=== PATIENT | male | born 1955 | race Caucasian/White ===

== ENCOUNTER 2017-10-18 17:13 | Observation (INO) | payer OTHER ==
[2017-10-18] MEDS ORDERED: Sodium Chloride 0.9% 10 ML Syringe FLUSH PRN (17:31)
[2017-10-18] MEDS ORDERED: Nitroglycerin 0.4 MG Tab.SL SL PRN (17:45)
[2017-10-18] MEDS ORDERED: Albuterol 0.083% 2.5 MG/3 ML Neb Soln NEB PRN (17:58)
[2017-10-18] MEDS ORDERED: Aspirin 325 MG Tab.EC PO SCH (20:00)
--- NOTE | 2017-10-18 22:41 | HP ---
CHIEF COMPLAINT: Chest pain. HISTORY OF PRESENT ILLNESS: This is a 61-year-old male with no known history of coronary artery disease but with hypertension, hyperlipidemia, and a family history of coronary disease, who presented to the clinic today after an acute onset of chest pain while he was out mowing the lawn for 15 minutes. The patient thought it was his heartburn. He went. He took some Pepto-Bismol. The pain went away. Then he returned to mowing. The pain came back. It lasted about 5 to 10 minutes. Then he went and rested even inside with air conditioning. Then he came back out, tried to work again. He was going to return. He had finished mowing, so he is going to do the fertilizer, but the pain got worse. He described it is midsternal and it was just like his chest was pounding. He told me he has not had this problem before, but the nurse and the provider had mentioned that maybe he had in the previous month. He tells me he is working very hard a couple days ago, digging some trenches, working for like many hours and did not have any chest discomfort or shortness of breath. He has been walking up and down hills on his property without limitation. When these symptoms happened, it sort of "took his breath away" but he did not have any more sweating than he usually would work outside. Symptoms started around 2 p.m. He had a meeting this morning, then lunch with half a beer, and then went home to [facility]. His last episode of chest pain finished around 3 p.m. He was in the clinic and had lab work drawn at 3:30 which showed his troponin to be negative. Otherwise, his history is significant for having hypertension, starting on medications in the last year, now blood pressures are under good control, but he did have a stress test last year with blood pressures going up to 234/38. It was stopped due to that and leg fatigue. He actually walked 7 minutes and 33 seconds, unfortunately had some ST changes at that time with depression horizontal at 3 minutes of exercise, heart rate a rate of 122, reaching 2 millimeters and resolved 5 minutes into recovery. I had made recommendations for him to have another stress test, possibly with imaging after his blood pressure got under better control, but he was doing well, so he did not have one. He has even been through cataract surgery. He recently, about a month ago, started on Crestor. PAST MEDICAL HISTORY: History of prostate cancer; essential hypertension; asthma, intermittent, he did not feel he has any cough or problems with that currently; mild hyperlipidemia; obesity; erectile dysfunction. FAMILY HISTORY: His dad had bypass surgery in his 60s or 70s, otherwise, he is alive. His mother is still alive. She has hypertension. SOCIAL HISTORY: He never smoked tobacco. He uses about 2 beers of alcohol per week. PAST SURGICAL HISTORY: Surgically, he has had a left inguinal hernia repair, right inguinal hernia, umbilical hernia, prostate surgery and cataract surgery. ALLERGIES: 1. Crestor, cough. 2. Lipitor muscle aches. 3. Pravastatin, water retention. MEDICATION: Medication list is reviewed. It does include hydrochlorothiazide 25 mg daily, Norvasc 10 mg daily, Crestor 10 mg daily, lisinopril 10 mg daily, aspirin 325, he takes 2 at bedtime, Zetia 10 mg daily, and albuterol as needed. REVIEW OF SYSTEMS: General: He said he has been working really hard. He has actually been about the same weight though. No fever, no chills. HEENT: No sore throat. Cardiac: As stated in the HPI. No irregular heart beats. Respiratory: As stated in the HPI. Abdominal: The Pepto-Bismol, it is not clear if that really helped it or not, but this was different than any heartburn he has had in the past. Musculoskeletal: He had no neck pain. No jaw pain. No shoulder pain. Otherwise, all systems reviewed and found to be negative unless otherwise stated. PHYSICAL EXAMINATION: Vital Signs: His weight was 224 pounds, blood pressure 108/70, respiratory rate 18, and O2 at 96% on room air, pulse 90. General: No acute distress. Heart: Regular rate and rhythm. S1, S2 without murmur. Lungs: Sounds are clear to auscultation bilaterally without crackles or wheezes. Abdomen: Positive bowel sounds. Soft and nontender. Extremities: Warm and dry. No edema. Skin: He is overall cardona, Mental Status: Alert and orientated x3. STUDIES: Chest x-ray reviewed. There was just some subtle scarring over the left base, otherwise normal EKG read as a normal sinus rhythm. Some nonspecific ST changes in lead III, but this was similar to his previous EKG. Lab work reviewed. Troponin was negative. White count, hemoglobin all normal. Glucose mildly elevated at 108, creatinine 1, otherwise electrolytes shahid. ASSESSMENT AND PLAN: Chest pain symptoms, very suspicious for stable angina. Discussed with the patient that this could lead to unstable angina and even a myocardial infarction. I recommended observation as he is just within a few hours of his episode. He was agreeable. We will repeat a troponin around [address] him on telemetry. We will repeat another troponin in the morning or sooner if needed. We will repeat an EKG for any chest pain. We will continue his aspirin, his statin, his home medications currently. Could consider adding a beta ismael, but we will hold off for now. If recurrence of chest pain, we will give him nitroglycerin. Instructed that on discharge if all things basket turner okay, he likely needs an angiogram. This can be arranged. Otherwise, we will add a D-dimer to his next blood work, although he has no risk factors for pulmonary embolism. He should have a normal D-dimer at this point. If not, we will do a CT PE protocol. We will update his primary care provider. He is a code level 1 due to suspecting less than 24 hours for admission. No DVT prophylaxis was started. The patient and his are aware of the plan. CARMENA: 10/18/2017 17:45:51 MODL: 10/18/2017 22:31:32 /[id number]
[2017-10-19] MEDS ORDERED: Hydrochlorothiazide 25 MG Tab PO SCH (08:00)
[2017-10-19] MEDS ORDERED: Lisinopril 10 MG Tab PO SCH (08:00)
[2017-10-19] MEDS ORDERED: amLODIPine 10 MG Tab PO SCH (08:00)
--- NOTE | 2017-10-19 08:25 | PCM.PN ---
- General Info Date of Service: 10/19/17 Subjective Update: See d/c summary instead. Note started in error. - Patient Data Vitals - Most Recent: Last Vital Signs Temp 36.8 C 10/19/17 06:00 Pulse 59 L 10/19/17 06:00 Resp 19 10/19/17 06:00 BP 110/66 10/19/17 06:00 Pulse Ox 98 10/19/17 06:00 Weight - Most Recent: 101.605 kg I&O - Last 24 Hours: Intake & Output 10/18/17 10/19/17 10/19/17 22:59 06:59 14:59 Intake Total 420 1200 Output Total 300 Balance 120 1200 Lab Results Last 24 Hours: Laboratory Results - last 24 hr 10/18/17 10/18/17 10/19/17 Range/Units 19:20 19:20 07:02 D-Dimer, Quantitative 0.26 (<=0.58) mg/LFEU Troponin I < 0.017 < 0.017 (<=0.056) ng/mL Med Orders - Current: Current Medications Albuterol (Proventil Neb Soln) 2.5 mg NEB Q4HRRT PRN PRN Reason: Shortness of Breath Amlodipine Besylate (Norvasc) 10 mg PO DAILY [facility] Aspirin (Ecotrin) 650 mg PO BEDTIME [facility] Last Admin: 10/18/17 20:22 Dose: 650 mg Hydrochlorothiazide (Hydrochlorothiazide) 25 mg PO DAILY [facility] Lisinopril (Prinivil) 10 mg PO DAILY [facility] Nitroglycerin (Nitrostat) 0.4 mg SL Q5M PRN PRN Reason: Chest Pain Nf (Rosuvastatin 10 (Mg)) 10 mg PO Q2D [facility] Sodium Chloride (Saline Flush) 10 ml FLUSH ASDIRECTED PRN PRN Reason: Keep Vein Open - Problem List Review Problem List Initiated/Reviewed/Updated: Yes
--- NOTE | 2017-10-19 08:41 | PCM.DCSUM1 ---
Discharge Summary - Hospital Course HPI Initial Comments: Mr. Verde is a 61 yo male who was admitted for observation after presenting with exertional chest pain yesterday. Diagnosis: Stroke: No - Discharge Data Discharge Date: 10/19/17 Discharge Disposition: DC/Tfer to Acute Hospital 02 Condition: Good - Discharge Diagnosis/Problem(s) (1) Angina pectoris SNOMED Code(s): 460868853 ICD Code: I20.9 - ANGINA PECTORIS, UNSPECIFIED Status: Acute Current Visit: Yes Problem Details: Symptoms of chest pain started while mowing the lawn and resolved with rest. This then recurred on 2 more occasions. EKG unchanged from previous. Troponins have been monitored and negative. He has not had any symptoms overnight but has not exerted himself. Did call and speak with cardiology this morning and they recommend an angiogram today in light of his previous positive stress test, family history, and risk factors. The patient is in agreement with this and will be transferred to [facility] via EMS for further evaluation and management there. (2) Hypertension SNOMED Code(s): 26737553 ICD Code: I10 - ESSENTIAL (PRIMARY) HYPERTENSION Status: Chronic Current Visit: Yes Problem Details: Blood pressure has been acceptable during his admission. Qualifiers: Hypertension type: essential hypertension Qualified Code(s): I10 - Essential (primary) hypertension (3) Hyperlipidemia SNOMED Code(s): 96265100 ICD Code: E78.5 - HYPERLIPIDEMIA, UNSPECIFIED Status: Chronic Current Visit: Yes Problem Details: He is on crestor without any issues. Qualifiers: Hyperlipidemia type: unspecified Qualified Code(s): E78.5 - Hyperlipidemia , unspecified - Patient Summary/Data Operative Procedure(s) Performed: none Complications: none Consults: none Labs Pending at D/C: none Planned Operative Procedure(s) after DC: angiogram Hospital Course: See details above. Patients labs remained normal and he was asymptomatic overnight. Spoke with cardiology who requests patient be transferred to [place] for angiogram today. Patient will be kept NPO until after this. EMS to transport patient. - Patient Instructions Diet: NPO - Discharge Plan Home Medications: Home Meds Albuterol [Proventil HFA] 1 - 2 puff INH Q4H PRN 10/18/17 [History] Aspirin 650 mg PO BEDTIME 10/18/17 [History] Ezetimibe [Zetia] 10 mg PO DAILY 10/18/17 [History] Hydrochlorothiazide 25 mg PO DAILY 10/18/17 [History] Lisinopril 10 mg PO DAILY 10/18/17 [History] Rosuvastatin [Crestor] 10 mg PO ASDIRECTED 10/18/17 [History] amLODIPine Besylate [Norvasc] 10 mg PO DAILY 10/18/17 [History] Forms: Interfacility Transfer EMTALA - Discharge Summary/Plan Comment DC Time >30 min.: No - General Info Date of Service: 10/19/17 Subjective Update: Patient asymptomatic overnight. No chest pain or shortness of breath. Feeling well this morning. Has not done much exertion. - Review of Systems General: Reports: No Symptoms HEENT: Reports: No Symptoms Pulmonary: Reports: No Symptoms Cardiovascular: Reports: No Symptoms Gastrointestinal: Reports: No Symptoms Genitourinary: Reports: No Symptoms Musculoskeletal: Reports: No Symptoms Skin: Reports: No Symptoms - Patient Data Vitals - Most Recent: Last Vital Signs Temp 36.8 C 10/19/17 06:00 Pulse 59 L 10/19/17 06:00 Resp 19 10/19/17 06:00 BP 110/66 10/19/17 06:00 Pulse Ox 98 10/19/17 06:00 Weight - Most Recent: 101.605 kg I&O - Last 24 hours: Intake & Output 10/18/17 10/19/17 10/19/17 22:59 06:59 14:59 Intake Total 420 1200 Output Total 300 Balance 120 1200 Lab Results - Last 24 hrs: Laboratory Results - last 24 hr 10/18/17 10/18/17 10/19/17 Range/Units 19:20 19:20 07:02 D-Dimer, Quantitative 0.26 (<=0.58) mg/LFEU Troponin I < 0.017 < 0.017 (<=0.056) ng/mL Med Orders - Current: Current Medications Albuterol (Proventil Neb Soln) 2.5 mg NEB Q4HRRT PRN PRN Reason: Shortness of Breath Amlodipine Besylate (Norvasc) 10 mg PO DAILY [facility] Aspirin (Ecotrin) 650 mg PO BEDTIME [facility] Last Admin: 10/18/17 20:22 Dose: 650 mg Hydrochlorothiazide (Hydrochlorothiazide) 25 mg PO DAILY [facility] Lisinopril (Prinivil) 10 mg PO DAILY [facility] Nitroglycerin (Nitrostat) 0.4 mg SL Q5M PRN PRN Reason: Chest Pain Nf (Rosuvastatin 10 (Mg)) 10 mg PO Q2D [facility] Sodium Chloride (Saline Flush) 10 ml FLUSH ASDIRECTED PRN PRN Reason: Keep Vein Open - Exam General: Reports: Alert, Cooperative, No Acute Distress HEENT: Reports: Mucous Membr. Moist/[place] Neck: Reports: Supple, Trachea Midline, No Thyromegaly. Denies: Lymphadenopathy Lungs: Reports: Clear to Auscultation, Normal Respiratory Effort Cardiovascular: Reports: Regular Rate, Regular Rhythm GI/Abdominal Exam: Normal Bowel Sounds, Soft, Non-Tender, No Organomegaly, No Distention, No Mass Extremities: Non-Tender, No Pedal Edema, Normal Capillary Refill Skin: Reports: Warm, Dry, Intact
[2017-10-19] MEDS ORDERED: ROSUVASTATIN 10 MG PO SCH (20:00)
== END 2017-10-19 09:50 | disposition short-term general hospital (02) ==
LOC: VM.MS 17:24
PROVIDERS: ADMIT Internal Medicine; ATTEND Internal Medicine
DX: I20.9 Angina pectoris, unspecified (principal); I10 Essential (primary) hypertension; E78.5 Hyperlipidemia, unspecified; E66.9 Obesity, unspecified; J45.909 Unspecified asthma, uncomplicated; N52.9 Male erectile dysfunction, unspecified; Z79.82 Long term (current) use of aspirin; Z79.899 Other long term (current) drug therapy; Z88.8 Allergy status to other drugs, medicaments and biological substances
CPT/HCPCS: 36415; 84484; 85379; A9270-GY; G0378; J7050